=== PATIENT | female | born 1995 | race Caucasian/White ===

== ENCOUNTER 2017-04-26 08:28 | Emergency (ER) | payer SELFPAY ==
[~2017-04-26] VITALS: Ht 160 cm; Wt 72.5 kg
[~2017-04-26 08:28] MED LIST: IBUP-2070 PO
[2017-04-26 08:41] VITALS: BP 123/75
[2017-04-26] MEDS ORDERED: IBUPROFEN 600 MG TABLET PO ONE (08:45)
== END 2017-04-26 09:04 | disposition home or self-care (01) ==
LOC: EMS 08:29
DX: H66.91 Otitis media, unspecified, right ear (principal)
CPT/HCPCS: 99283

== ENCOUNTER 2019-06-24 13:40 | Observation (INO) | payer OTHER ==
[2019-06-24 14:20] VITALS: BP 105/55
[2019-06-24] MEDS ORDERED: PREN1TAB80 PO (14:20)
== END 2019-06-24 15:10 | disposition home or self-care (01) ==
LOC: 4S 13:40
PROVIDERS: ADMIT Obstetrics & Gynecology; ATTEND Obstetrics & Gynecology
DX: O26.892 Other specified pregnancy related conditions, second trimester (principal); R10.2 Pelvic and perineal pain; Z3A.23 23 weeks gestation of pregnancy
CPT/HCPCS: 81002; G0378

== ENCOUNTER 2019-10-01 09:15 | Inpatient (IN) | payer OTHER ==
[~2019-10-01] VITALS: Ht 160 cm; Wt 83.5 kg
[~2019-10-01 09:15] MED LIST changes: -IBUP-2070 PO; +PREN1TAB80 PO
[2019-10-01 10:09] VITALS: BP 112/65
[2019-10-01] MEDS ORDERED: OXYTOCIN 30 UNITS/LACT RINGERS 500 ML IV ONE ×2 (12:32→20:14)
[2019-10-01] MEDS ORDERED: RINGERS SOLUTION,LACTATED 1,000 ML IV PRN (12:32)
[2019-10-01] MEDS ORDERED: RINGERS SOLUTION,LACTATED 1,000 ML IV SCH (12:36)
[2019-10-01] MEDS ORDERED: LIDOCAINE/PF 1% 30 ML VIAL INJ PRN ×2 (12:45→20:15)
[2019-10-01] MEDS ORDERED: MISOPROSTOL 25 MCG TABLET PO SCH (12:45)
[2019-10-01] MEDS ORDERED: TERBUTALINE SULFATE 1 MG/ML VIAL SQ PRN (12:45)
[2019-10-01] MEDS ORDERED: METHYLERGONOVINE MALEATE 0.2 MG/ML VIAL IM PRN (12:45)
[2019-10-01] MEDS ORDERED: CITRIC ACID/SODIUM CITRATE 30 ML SOLUTION UDCUP PO PRN (12:45)
[2019-10-01] MEDS ORDERED: METOCLOPRAMIDE HCL 5 MG/ML 2 ML VIAL IVP PRN (12:45)
[2019-10-01 13:05] LABS: BASOPHILS % (AUTO) 0.5 % (0.0-2.0); EOSINOPHILS % (AUTO) 0.2 % (1.0-6.0); HEMATOCRIT 36.4 % (36-46); HEMOGLOBIN 12.3 g/dL (12.0-16.0); LYMPHOCYTES # (AUTO) 1.9 K/uL (1.0-4.8); LYMPHOCYTES % (AUTO) 17.4 % (22.0-44.0); MEAN CORPUSCULAR HEMOGLOBIN 29.3 pg (26.0-34.0); MEAN CORPUSCULAR HGB CONC 33.7 G/dL (31.0-37.0); MEAN CORPUSCULAR VOLUME 87 fL (80-100); MONOCYTES # (AUTO) 0.4 K/uL (0.1-1.0); MONOCYTES % (AUTO) 3.5 % (2.0-9.0); NEUTROPHILS # (AUTO) 8.7 K/uL (1.8-7.7); NEUTROPHILS % (AUTO) 78.4 % (40.0-70.0); PLATELET COUNT (AUTO)-OB 293 K/uL (150-450); RED CELL DISTRIBUTION WIDTH 14.1 % (11.5-14.5)
[2019-10-01] MEDS: RINGERS SOLUTION,LACTATED 1,000 ML IV SCH ×2 (13:16→19:05)
[2019-10-01] MEDS: FentaNYL CITRATE-PF 100 MCG/2 ML VIAL IVP PRN ×3 (17:04→17:53)
[2019-10-01] MEDS ORDERED: NALBUPHINE HCL 10 MG/ML VIAL IVP PRN (18:00)
[2019-10-01] MEDS ORDERED: DiphenhydrAMINE HCL 50 MG/ML VIAL IVP PRN (18:00)
[2019-10-01] MEDS ORDERED: ROPIVACAINE HCL/PF 0.2% 100 ML ED SCH (18:00)
[2019-10-01] MEDS ORDERED: ONDANSETRON HCL 4 MG/2 ML VIAL IVP PRN (18:00)
[2019-10-01] MEDS ORDERED: OXYTOCIN 30 UNITS/LACT RINGERS 500 ML IV PRN (18:08)
[2019-10-01] MEDS ORDERED: ROPIVACAINE HCL/PF 0.2% 100 ML ED ONE (18:20)
[2019-10-01] MEDS ORDERED: MINERAL OIL 30 ML UDCUP VG ONE (19:15)
[2019-10-01] MEDS ORDERED: OXYGEN THERAPY IH SCH (20:00)
[2019-10-01] MEDS ORDERED: MAGNESIUM HYDROXIDE SUSPENSION 30 ML UDCUP PO PRN (20:15)
[2019-10-01] MEDS ORDERED: IBUPROFEN 800 MG TABLET PO PRN (20:15)
[2019-10-01] MEDS ORDERED: GLYCERIN/WITCH HAZEL LEAF 40 PADS JAR TP PRN (20:15)
[2019-10-01] MEDS ORDERED: OxyCODONE HCL/ACETAMINOPHEN 5-325 MG TABLET PO PRN ×2 (20:15)
[2019-10-01] MEDS ORDERED: LANOLIN 7 GM OINTMENT TP PRN (20:15)
[2019-10-01] MEDS ORDERED: BENZOCAINE 20%/MENTHOL 56 GM SPRAY CANISTER TP PRN (20:15)
[2019-10-02 06:17] LABS: BASOPHILS % (AUTO) 0.4 % (0.0-2.0); EOSINOPHILS % (AUTO) 0.2 % (1.0-6.0); HEMATOCRIT 33.5 % (36-46); HEMOGLOBIN 11.5 g/dL (12.0-16.0); LYMPHOCYTES # (AUTO) 2.1 K/uL (1.0-4.8); LYMPHOCYTES % (AUTO) 18.1 % (22.0-44.0); MEAN CORPUSCULAR HEMOGLOBIN 29.7 pg (26.0-34.0); MEAN CORPUSCULAR HGB CONC 34.4 G/dL (31.0-37.0); MEAN CORPUSCULAR VOLUME 87 fL (80-100); MONOCYTES # (AUTO) 0.8 K/uL (0.1-1.0); MONOCYTES % (AUTO) 6.5 % (2.0-9.0); NEUTROPHILS # (AUTO) 8.8 K/uL (1.8-7.7); NEUTROPHILS % (AUTO) 74.8 % (40.0-70.0); PLATELET COUNT (AUTO)-OB 270 K/uL (150-450); RED BLOOD CELL COUNT(AUTO) 3.88 MIL/uL (4.00-5.20); RED CELL DISTRIBUTION WIDTH 14.4 % (11.5-14.5)
== END 2019-10-02 20:40 | disposition home or self-care (01) | DRG 560 ==
LOC: OBSVTOIN 09:15 → 4S 09:15
PROVIDERS: ADMIT Obstetrics & Gynecology; ATTEND Obstetrics & Gynecology
PROC: 10E0XZZ Delivery of Products of Conception, External Approach (ICD-10-PCS; principal; 2019-10-01)
PROC: 3E0R3BZ Introduction of Anesthetic Agent into Spinal Canal, Percutaneous Approach (ICD-10-PCS; 2019-10-01)
PROC: 00HU33Z Insertion of Infusion Device into Spinal Canal, Percutaneous Approach (ICD-10-PCS; 2019-10-01)
DX: O69.81X0 Labor and delivery complicated by cord around neck, without compression, not applicable or unspecified (principal); Z37.0 Single live birth; Z3A.37 37 weeks gestation of pregnancy
CPT/HCPCS: 86850; 86900; 86901; 89060; 99219; J2590; J2795; J3010; J7120